=== PATIENT | female | born 1985 | race American Indian/Alaskan Native ===

== ENCOUNTER 2018-08-01 09:56 | Emergency (ER) | payer BC ==
[2018-08-01 10:02] VITALS: BP 151/69
--- NOTE | 2018-08-01 10:55 | Emergency Department Report ---
ED Chest Pain HPI - General Chief Complaint: Chest Pain Stated Complaint: CHEST PAIN/SOB Time Seen by Provider: 08/01/18 10:44 Source: patient Mode of arrival: Ambulatory Limitations: No Limitations - History of Present Illness Initial Comments: Ms. Martinez is a 32 yo female with hx of mitral valve prolapse who presents with heart fluttering chest pain and dyspnea today. Has had symptoms for several years. Has underwent thyroid ultrasound, echocardiogram, holter monitoring all arranged by previous PCP in [place] several years ago. Feels better now after finding out EKG was normal. Fluttering occurs sporadically. Has had worsening chest pain and shortness of breath over the past several weeks. MD Complaint: chest pain -: Gradual, week(s) (several weeks), year(s) (5) Onset: during rest Severity: mild Worsens With: movement Other Symptoms: palpitations, other (shortness of breath) - Related Data Allergies Allergy/AdvReac Type Severity Reaction Status Date / Time No Known Allergies Allergy Unverified 08/01/18 09:57 Heart Score - HEART Score History: Slightly suspicious EKG: Normal Age: < 45 Risk factors: No known risk factors Troponin: < normal limit HEART Score: 0 ED Review of Systems ROS: Stated complaint: CHEST PAIN/SOB Other details as noted in HPI Comment: All other systems reviewed and negative Constitutional: denies: fever, malaise Respiratory: shortness of breath Cardiovascular: palpitations. denies: chest pain ED Past Medical Hx - Past Medical History Previous Medical History?: Yes Additional medical history: Mitral valve prolapse - Surgical History Past Surgical History?: Yes Additional Surgical History: arm surgery - Family History Family history: diabetes, hypertension, vascular disease - Social History Smoking Status: Never Smoker Substance Use Type: Alcohol (social drinker), Marijuana (3-4 times per week) Other Social History: Teacher ED Physical Exam - General Limitations: No Limitations General appearance: alert, in no apparent distress - Head Head exam: Present: atraumatic, normocephalic - Eye Eye exam: Present: normal appearance - ENT ENT exam: Present: mucous membranes moist - Neck Neck exam: Present: normal inspection, full ROM - Respiratory Respiratory exam: Present: normal lung sounds bilaterally. Absent: respiratory distress, wheezes, rales, rhonchi - Cardiovascular Cardiovascular Exam: Present: regular rate, normal rhythm, normal heart sounds. Absent: systolic murmur, diastolic murmur, rubs, gallop - GI/Abdominal GI/Abdominal exam: Present: soft, normal bowel sounds. Absent: distended, tenderness, guarding, rebound - Extremities Exam Extremities exam: Present: normal inspection - Back Exam Back exam: Present: normal inspection - Neurological Exam Neurological exam: Present: alert, oriented X3 - Psychiatric Psychiatric exam: Present: normal affect, normal mood - Skin Skin exam: Present: warm, dry, intact, normal color. Absent: rash ED Course Vital Signs 08/01/18 09:59 Temperature 98.4 F Pulse Rate 78 Respiratory 16 Rate Blood Pressure 151/69 [Left] O2 Sat by Pulse 100 Oximetry ED Medical Decision Making - Medical Decision Making Ms. Martinez presents with chest pain, palpitations shortness of breath. Currently symptom free. No indication of lethal arrhythmia or acute chronic syndrome. No signs of pericarditis on EKG. I do not suspect pneumothorax. I do not suspect pneumonia. PERC rule Negative for PE. Given referral for outside clinic for full physical evaluation. Critical care attestation.: If time is entered above; I have spent that time in minutes in the direct care of this critically ill patient, excluding procedure time. ED Disposition Clinical Impression: Chest pain, Palpitations, Mitral valve prolapse Disposition: -01 TO HOME OR SELFCARE Is pt being admited?: No Does the pt Need Aspirin: No Condition: Stable Instructions: Chest Pain (ED), Mitral Valve Prolapse (ED) Referrals: DANIELA ROYAL MD [Staff Physician] - 3-5 Days NICK WEN MD [Staff Physician] - 3-5 Days Forms: Work/School Release Form(ED)
== END 2018-08-01 11:45 | disposition home or self-care (01) ==
LOC: ED 09:56
DX: I34.1 Nonrheumatic mitral (valve) prolapse (principal); F12.10 Cannabis abuse, uncomplicated
CPT/HCPCS: 93005; 93010